=== PATIENT | female | born 1970 | race Two or more races ===

== ENCOUNTER 2022-04-09 06:35 | Day surgery (SDC) | payer OTHER | END 2022-04-09 15:20 | disposition home or self-care (01) | LOC: CIR.AMB 06:35 | PROVIDERS: ATTEND Surgery | DX: N60.91 Unspecified benign mammary dysplasia of right breast (principal); Z20.822 Contact with and (suspected) exposure to COVID-19 | CPT/HCPCS: 19281; 19301; C1789 ==

== ENCOUNTER 2025-03-13 12:43 | Outpatient (CLI) | payer OTHER | END 2025-03-13 12:49 | disposition home or self-care (01) | LOC: NUCLEAR 12:43 | PROVIDERS: ATTEND General Practice | DX: M81.0 Age-related osteoporosis without current pathological fracture (principal) ==